=== PATIENT | male | born 1985 | race Caucasian/White ===

== ENCOUNTER 2018-03-01 12:15 | Emergency (ER) | payer SELFPAY ==
[2018-03-01 13:29] LABS: Urine Appearance Clear; Urine Blood Negative (Negative); Urine Color Yellow; Urine Ketones Trace (Negative); Urine Protein Negative (Negative); Urine Specific Gravity 1.027 (1.010-1.030); Urine Urobilinogen Negative (Negative)
[2018-03-01 13:38] LABS: ABS Basophils 0.1 10^3/ul (0-0.2); ABS Eosinophils 0.1 10^3/ul (0-0.6); ABS Lymphocytes 2.5 10^3/ul (1.0-4.8); ABS Monocytes 0.6 10^3/ul (0-0.8); ABS Neutrophils 3.5 10^3/ul (1.5-7.7); ABS Nucleated RBC 0 10^3/ul; Eosinophil % 1.2 % (0-6); Hematocrit 43 % (42-52); Hemoglobin 14.3 g/dl (14.0-18.0); Mean Corpuscular HGB Conc 34 g/dl (31-36); Mean Corpuscular Hemoglobin 30 pg (27-31); Mean Corpuscular Volume 89 fL (80-94); Nucleated Red Blood Cells % 0.1; Platelet Count 278 10^3/ul (150-450); Red Cell Distribution Width 14 % (10.5-15); White Blood Count 6.8 10^3/ul (3.5-10.8)
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
[2018-03-01 13:56] LABS: EGFR Non-African American 89.7 (>60)
[2018-03-01 17:32] VITALS: BP 110/70
== END 2018-03-01 17:31 | disposition home or self-care (01) ==
LOC: ED 12:15
DX: F43.24 Adjustment disorder with disturbance of conduct (principal)
CPT/HCPCS: 36415; 80053; 80307; 80320; 80329; 81003; 84443; 85025; 99284; G0480

== ENCOUNTER 2018-03-27 18:35 | Emergency (ER) | payer OTHER ==
[2018-03-27 18:40] VITALS: BP 109/65
[2018-03-27] MEDS ORDERED: Tetan/Diph/Pertus SYR(Tdap)* 0.5 ML SYR(BOOSTRIX) use SYR IM ONE (18:47)
[2018-03-27] MEDS ORDERED: Lidocaine 1%* 5 ML VIAL INJ ONE (18:47)
[2018-03-27] MEDS ORDERED: Ibuprofen TAB* 800 MG PO ONE (18:47)
--- NOTE | 2018-03-27 18:47 | ED ---
Laceration/Wound HPI - HPI Summary HPI Summary: Pt. is a 32 y.o male who presents emergency department for a finger injury that occurred just prior to arrival. Patient states he accidentally caught his right middle finger in a metal door and sustained laceration. Patient is unaware of his last tetanus immunization. No relevant past medical history. Symptoms are mild in severity. Moving and touching finger makes symptoms worse. Rest makes symptoms better. - History of Current Complaint Stated Complaint: RT HAND FINGER CRUSHED Time Seen by Provider: 03/27/18 18:42 Hx Obtained From: Patient Pain Intensity: 5 - Allergy/Home Medications Allergies/Adverse Reactions: Allergies Allergy/AdvReac Type Severity Reaction Status Date / Time tramadol Allergy Dizziness Verified 03/27/18 18:38 Home Medications: Home Medications DULoxetine DR CAP* [Cymbalta CAP*] 60 mg PO DAILY 03/27/18 [History Confirmed ] OLANzapine TAB* [Zyprexa 5 MG TAB*] 5 mg PO DAILY 03/27/18 [History Confirmed ] PMH/Surg Hx/FS Hx/Imm Hx Previously Healthy: Yes Endocrine/Hematology History: Denies: Hx Diabetes, Hx Thyroid Disease Cardiovascular History: Denies: Hx Hypertension, Hx Pacemaker/ICD Respiratory History: Denies: Hx Asthma, Hx Chronic Obstructive Pulmonary Disease (COPD) GI History: Denies: Hx Ulcer Sensory History: Denies: Hx Hearing Aid Neurological History: Reports: Hx Seizures - EPILEPSY Psychiatric History: Denies: Hx Eating Disorder, Hx Panic Disorder - Surgical History Surgery Procedure, Year, and Place: None. Infectious Disease History: No Infectious Disease History: Denies: Hx Clostridium Difficile, Hx Hepatitis, Hx Human Immunodeficiency Virus (HIV), Hx of Known/Suspected MRSA, Hx Shingles, Hx Tuberculosis, Hx Known/ Suspected VRE, Hx Known/Suspected VRSA, History Other Infectious Disease, Traveled Outside the [place] in Last 30 Days - Family History Known Family History: Negative: Hypertension Family History: NON CONTRIBUTORY - Social History Occupation: Employed Full-time Lives: With Family Alcohol Use: Occasionally Hx Substance Use: No Substance Use Type: Reports: None Hx Tobacco Use: Yes Smoking Status (MU): Current Every Day Smoker Type: Cigarettes Amount Used/How Often: < 1/4 PPD Length of Time of Smoking/Using Tobacco: 10 YEARS Have You Smoked in the Last Year: Yes Review of Systems Positive: Other - Finger All Other Systems Reviewed And Are Negative: Yes Physical Exam Triage Information Reviewed: Yes Vital Signs On Initial Exam: Initial Vitals Temp Pulse Resp BP Pulse Ox 98.2 F 68 16 109/65 100 03/27/18 18:38 03/27/18 18:38 10 18:38 03/27/18 18:38 03/27/18 18:38 Vital Signs Reviewed: Yes Appearance: Positive: Well-Appearing - Pt. sitting on bed in NAD. present. Skin: Positive: Warm, Dry Head/Face: Positive: Normal Head/Face Inspection Eyes: Positive: Normal, EOMI Neck: Positive: Supple Musculoskeletal: Positive: Other - 1cm linear laceration noted to the palmar aspect on the 3rd digit of right hand. Full ROM of flexor tendon. Bony tenderness. Neurological: Positive: Normal, CN Intact II-III Psychiatric: Positive: Affect/Mood Appropriate Procedures - Laceration/Wound Repair 1 Location: upper extremity - Right middle finger Description: Linear Anesthesia: Local, 1.0% - 3cc Length, Depth and Shape: 1cm linear full thickness Betadine Prep?: No - hibiclens Irrigated w/ Saline (ccs): 100 Laceration/Wound Explored: clean Suture Type: Nylon - 4-0 Number of Sutures: 3 Layer Closure?: No Sterile Dressing Applied?: Yes Diagnostics - Vital Signs Vital Signs Temp Pulse Resp BP Pulse Ox 03/27/18 18:38 98.2 F 68 16 109/65 100 - Laboratory Lab Statement: Any lab studies that have been ordered have been reviewed, and results considered in the medical decision making process. Laceration Repair Course/Dx - Course Course Of Treatment: Presenting with a simple finger laceration. Tendons are intact. X-rays negative for fracture or foreign body, reading per myself and Dr. Ch. Tetanus was updated. Laceration was repaired as noted above. Suture removal in 7-10 days. Keep wound clean and dry. To return to the ER for redness, swelling or drainage from wound. Continue Tylenol or Motrin for pain as directed. - Differential Dx Differental Diagnoses: Laceration, Tendon Laceration - Clinical Impression Provider Diagnoses: Finger laceration Discharge - Sign-Out/Discharge Documenting (check all that apply): Patient Departure - Discharge Plan Condition: Good Disposition: HOME Patient Education Materials: Care For Your Stitches (ED), Laceration (ED) Forms: *Work Release Referrals: [facility] [Outside] No Primary Care Phys,NOPCP [Primary Care Provider] - Additional Instructions: Schedule an appointment with the [facility] for follow up Suture removal in 7-10 days Keep wound clean and dry Tylenol or Motrin for pain as directed Return to ER for redness, swelling or drainage from wound - Billing Disposition and Condition Condition: GOOD Disposition: Home
--- NOTE | 2018-03-28 07:57 | RAD ---
Indication: RIGHT middle finger laceration from crush injury. Comparison: December 25, 2012 Technique: 3 views RIGHT middle finger. REPORT AND IMPRESSION: #. Soft tissue laceration volar aspect at level of DIP. No conspicuous subcutaneous emphysema, foreign body, fracture, or malalignment. R0
== END 2018-03-27 19:45 | disposition home or self-care (01) ==
LOC: ED 18:35
DX: S61.212A Laceration without foreign body of right middle finger without damage to nail, initial encounter (principal); W23.0XXA Caught, crushed, jammed, or pinched between moving objects, initial encounter; Y92.9 Unspecified place or not applicable; G40.909 Epilepsy, unspecified, not intractable, without status epilepticus; F17.210 Nicotine dependence, cigarettes, uncomplicated
CPT/HCPCS: 12001; 73140; 90471; 90715; 99282; A9270-GY